=== PATIENT | female | born 1995 | race Caucasian/White ===

== ENCOUNTER 2016-10-12 13:37 | Emergency (ER) | payer MEDICAID ==
[~2016-10-12] VITALS: Ht 165.1 cm; Wt 53.9 kg
[~2016-10-12 13:37] MED LIST: FAMO-79 PO; IBUP-1222 PO; MELO-184 PO; NITR100C56 PO; ONDA4TAB10 PO; OXYC-302 PO; PREN1TAB60 PO; [UNRECOGNIZED DRUG - REMARK] PO
[2016-10-12 15:12] LABS: ASPARTATE AMINO TRANSFERASE 13 U/L (15-37); BLOOD UREA NITROGEN 13 mg/dL (7-18)
[2016-10-12 15:16] LABS: HCG UR OBC PASS
[2016-10-12 15:30] LABS: HEMOGLOBIN 13.8 g/dL (11.7-16.4)
[2016-10-12 16:34] VITALS: BP 113/66
== END 2016-10-12 16:36 | disposition home or self-care (01) ==
LOC: ED 14:26
DX: K59.00 Constipation, unspecified (principal); R10.84 Generalized abdominal pain
CPT/HCPCS: 36415; 74000; 80053; 81001; 81025; 85025

== ENCOUNTER 2017-06-21 09:52 | Emergency (ER) | payer MEDICAID ==
[~2017-06-21] VITALS: Ht 165.1 cm; Wt 60.0 kg
[~2017-06-21 09:52] MED LIST changes: -MELO-184 PO; +MELO15TA24 PO
[2017-06-21 10:02] VITALS: BP 108/70
[2017-06-21 10:58] LABS: HEMATOCRIT 44.4 % (34.6-47.8); HEMOGLOBIN 15.1 g/dL (11.7-16.4); WHITE BLOOD COUNT 8.3 x10^3/uL (3.4-10)
[2017-06-21 11:09] LABS: ASPARTATE AMINO TRANSFERASE 15 U/L (15-37); BLOOD UREA NITROGEN 8 mg/dL (7-18)
== END 2017-06-21 12:02 | disposition left against medical advice (07) ==
LOC: ED 11:56
DX: R10.12 Left upper quadrant pain (principal)
CPT/HCPCS: 36415; 80053; 84703; 85025; 99284

== ENCOUNTER 2017-07-02 07:34 | Emergency (ER) | payer MEDICAID ==
[~2017-07-02] VITALS: Ht 165.1 cm; Wt 60.6 kg
[2017-07-02 07:35] VITALS: BP 110/74
[2017-07-02] MEDS ORDERED: ONDANSETRON ODT 4 MG PO ONE (08:00)
[2017-07-02] MEDS ORDERED: PHENAZOPYRIDINE 200 MG TABLET PO ONE (08:00)
[2017-07-02] MEDS ORDERED: ONDANSETRON ODT 4 MG ONE (08:22)
[2017-07-02] MEDS ORDERED: PHENAZOPYRIDINE 200 MG TABLET ONE (08:22)
[2017-07-02 08:27] LABS: HEMATOCRIT 41.8 % (34.6-47.8); HEMOGLOBIN 14.3 g/dL (11.7-16.4); WHITE BLOOD COUNT 11.1 x10^3/uL (3.4-10)
[2017-07-02 08:36] LABS: ASPARTATE AMINO TRANSFERASE 13 U/L (15-37); BLOOD UREA NITROGEN 13 mg/dL (7-18)
== END 2017-07-02 10:16 | disposition home or self-care (01) ==
LOC: ED 10:00
DX: N83.02 Follicular cyst of left ovary (principal); N83.01 Follicular cyst of right ovary
CPT/HCPCS: 36415; 76830; 80053; 81001; 84703; 85025; 87086; 99285; Q0162

== ENCOUNTER 2017-07-23 08:52 | Emergency (ER) | payer MEDICAID ==
[~2017-07-23] VITALS: Ht 165.1 cm; Wt 60.2 kg
[2017-07-23] MEDS ORDERED: SODIUM CHLORIDE FLUSH 10ML SYR IVF ONE (09:30)
[2017-07-23 09:40] LABS: BASOPHILS # (AUTO) 0.04 x10^3/uL (0-0.1); BASOPHILS % (AUTO) 1 % (0-1); EOSINOPHILS # (AUTO) 0.03 x10^3/uL (0-0.4); EOSINOPHILS % (AUTO) 0 % (1-7); LYMPHOCYTES # (AUTO) 2.22 x10^3/uL (1-3.4); LYMPHOCYTES % (AUTO) 28 % (22-44); MD NO; MEAN CORPUSCULAR HEMOGLOBIN 30.2 pg (27.0-34.8); MEAN CORPUSCULAR HGB CONC 33.6 g/dL (32.4-35.8); MEAN CORPUSCULAR VOLUME 89.8 fL (80-100); MONOCYTES # (AUTO) 0.44 x10^3/uL (0.2-0.8); MONOCYTES % (AUTO) 6 % (2-9); NEUTROPHILS # (AUTO) 5.28 x10^3/uL (1.8-6.8); NEUTROPHILS % (AUTO) 66 % (42-75); PLATELET COUNT 270 x10^3/uL (130-400); RED BLOOD COUNT 4.68 x10^6/uL (3.82-5.3); RED CELL DISTRIBUTION WIDTH 13.5 % (9.6-15.2)
[2017-07-23 09:55] LABS: ALBUMIN 4.1 g/dL (3.4-5.0); ANION GAP 7 mmol/L (5-15); CALCIUM 8.6 mg/dL (8.5-10.1); CHLORIDE 107 mmol/L (98-107)
[2017-07-23 10:03] LABS: ALANINE AMINOTRANSFERASE 13 U/L (12-78); ALKALINE PHOSPHATASE 58 U/L (45-117); BILIRUBIN,TOTAL 0.4 mg/dL (0.2-1.0); CREATININE 0.51 mg/dL (0.55-1.02); TOTAL PROTEIN 7.5 g/dL (6.4-8.2)
[2017-07-23 10:07] LABS: MICROSCOPIC AUTO
[2017-07-23 10:10] LABS: CULTURE INDICATED? YES
[2017-07-23] MEDS ORDERED: OMNIPAQUE 350 MG/ML, 100ML BOTTLE ONE (10:50)
[2017-07-23 11:01] VITALS: BP 108/63
== END 2017-07-23 12:17 | disposition home or self-care (01) ==
LOC: ED 10:31
DX: N94.89 Other specified conditions associated with female genital organs and menstrual cycle (principal)
CPT/HCPCS: 36415; 74177; 80053; 81001; 83690; 84703; 85025; 87086; 99285; Q9967

== ENCOUNTER 2019-06-05 11:26 | Emergency (ER) | payer MEDICAID ==
[~2019-06-05] VITALS: Ht 165.1 cm; Wt 59.4 kg
[2019-06-05 12:11] LABS: BASOPHILS # (AUTO) 0.03 x10^3/uL (0-0.1); BASOPHILS % (AUTO) 1 % (0-1); EOSINOPHILS # (AUTO) 0.03 x10^3/uL (0-0.4); EOSINOPHILS % (AUTO) 0 % (1-7); LYMPHOCYTES # (AUTO) 1.38 x10^3/uL (1-3.4); LYMPHOCYTES % (AUTO) 22 % (22-44); MD NO; MEAN CORPUSCULAR HEMOGLOBIN 30.3 pg (27.0-34.8); MEAN CORPUSCULAR HGB CONC 32.9 g/dL (32.4-35.8); MEAN CORPUSCULAR VOLUME 92.1 fL (80-100); MEAN PLATELET VOLUME 7.8 fL (7.4-10.4); MONOCYTES # (AUTO) 0.37 x10^3/uL (0.2-0.8); MONOCYTES % (AUTO) 6 % (2-9); NEUTROPHILS % (AUTO) 72 % (42-75); PLATELET COUNT 284 x10^3/uL (130-400); RED BLOOD COUNT 4.21 x10^6/uL (3.82-5.3); RED CELL DISTRIBUTION WIDTH 12.7 % (9.6-15.2)
--- NOTE | 2019-06-05 12:16 | NUR ---
FIELD MARKETING LEAD: PT TO ULTRASOUND. PT AMBULATORY WITH STEADY GAIT. ALEA
[2019-06-05 12:23] LABS: ALBUMIN 3.7 g/dL (3.4-5.0); ANION GAP 6 mmol/L (5-15); CALCIUM 8.5 mg/dL (8.5-10.1); CHLORIDE 105 mmol/L (98-107)
[2019-06-05 12:41] LABS: CREATININE 0.53 mg/dL (0.55-1.02)
--- NOTE | 2019-06-05 12:43 | NUR ---
ALIGNING CHECKER: PT TO ROOM FROM US AT THIS TIME. PT AMBULATORY WITH STEADY GAIT. ALEA
--- NOTE | 2019-06-05 12:53 | NUR ---
PT AMBULATES INDEPENDENTLY TO BATHROOM FOR UA. DAUGHTER AND FRIEND AT BEDSIDE. NAD NOTED IN PT AT THIS TIME. PER PT, ABD PAIN X2 WEEKS, VOMITING. NO VOMITING NOTED IN ED. AWAITING ERMD KEVYN.
[2019-06-05] MEDS ORDERED: FAMOTIDINE 20 MG/2 ML IVPush ONE (13:30)
[2019-06-05] MEDS ORDERED: SODIUM CHLORIDE 0.9% 1,000ML IVBOLUS ONE (13:30)
[2019-06-05] MEDS ORDERED: ONDANSETRON 2MG/ML, 2ML IVPush ONE (13:30)
[2019-06-05] MEDS ORDERED: SODIUM CHLORIDE FLUSH 10ML SYR IVF ONE (13:30)
[2019-06-05] MEDS ORDERED: FAMOTIDINE 20 MG/2 ML ONE (13:33)
[2019-06-05] MEDS ORDERED: ONDANSETRON 2MG/ML, 2ML ONE (13:33)
--- NOTE | 2019-06-05 14:18 | NUR ---
PT SITTING IN BED USING CELL PHONE. NAD NOTED AT THIS TIME. PT DENIES NAUSEA OR PAIN. SIDE RAIL UP, CALL LIGHT IN REACH. IVF STILL INFUSING. FRIEND AT BEDSIDE.
--- NOTE | 2019-06-05 14:36 | NUR ---
PT GIVEN PO FLUIDS FOR CHALLENGE. NAD NOTED AT THIS TIME. STILL DENIES NAUSEA.
[2019-06-05 14:54] VITALS: BP 109/65
== END 2019-06-05 14:56 | disposition home or self-care (01) ==
LOC: ED 14:50
DX: O21.0 Mild hyperemesis gravidarum (principal); E86.9 Volume depletion, unspecified; Z3A.08 8 weeks gestation of pregnancy
CPT/HCPCS: 36415; 76801; 80048; 82040; 84702; 85025; 96361; 96374; 96375; 99284; J2405; J3490; J7030

== ENCOUNTER 2019-06-17 12:13 | Emergency (ER) | payer MEDICAID ==
[~2019-06-17] VITALS: Ht 165.1 cm; Wt 58.0 kg
[2019-06-17 12:30] VITALS: BP 125/67
[2019-06-17 13:00] LABS: BASOPHILS # (AUTO) 0.05 x10^3/uL (0-0.1); BASOPHILS % (AUTO) 1 % (0-1); EOSINOPHILS # (AUTO) 0.02 x10^3/uL (0-0.4); EOSINOPHILS % (AUTO) 0 % (1-7); LYMPHOCYTES # (AUTO) 1.51 x10^3/uL (1-3.4); LYMPHOCYTES % (AUTO) 21 % (22-44); MD NO; MEAN CORPUSCULAR HEMOGLOBIN 30.6 pg (27.0-34.8); MEAN CORPUSCULAR HGB CONC 33.6 g/dL (32.4-35.8); MEAN CORPUSCULAR VOLUME 91.2 fL (80-100); MEAN PLATELET VOLUME 7.7 fL (7.4-10.4); MONOCYTES # (AUTO) 0.32 x10^3/uL (0.2-0.8); MONOCYTES % (AUTO) 4 % (2-9); NEUTROPHILS # (AUTO) 5.41 x10^3/uL (1.8-6.8); NEUTROPHILS % (AUTO) 74 % (42-75); PLATELET COUNT 256 x10^3/uL (130-400); RED BLOOD COUNT 4.28 x10^6/uL (3.82-5.3); RED CELL DISTRIBUTION WIDTH 12.4 % (9.6-15.2)
[2019-06-17] MEDS ORDERED: ONDANSETRON 2MG/ML, 2ML IVPush ONE (13:00)
[2019-06-17] MEDS ORDERED: SODIUM CHLORIDE FLUSH 10ML SYR IVF ONE (13:00)
[2019-06-17] MEDS ORDERED: SODIUM CHLORIDE 0.9% 1,000ML IVBOLUS ONE (13:00)
[2019-06-17] MEDS ORDERED: ONDANSETRON 2MG/ML, 2ML ONE (13:05)
[2019-06-17 13:12] LABS: ALANINE AMINOTRANSFERASE 23 U/L (12-78); ALBUMIN 3.7 g/dL (3.4-5.0); ANION GAP 8 mmol/L (5-15); CALCIUM 8.7 mg/dL (8.5-10.1); CHLORIDE 106 mmol/L (98-107); CREATININE 0.56 mg/dL (0.55-1.02)
[2019-06-17 13:14] LABS: ALKALINE PHOSPHATASE 52 U/L (45-117); BILIRUBIN,TOTAL 0.5 mg/dL (0.2-1.0); TOTAL PROTEIN 7.5 g/dL (6.4-8.2)
--- NOTE | 2019-06-17 14:02 | NUR ---
Patient/Caregiver given discharge instructions and they have confirmed that they understand the instructions. Patient ambulatory with steady gait.
== END 2019-06-17 14:03 | disposition home or self-care (01) ==
LOC: ED 12:58
DX: O21.0 Mild hyperemesis gravidarum (principal); Z3A.01 Less than 8 weeks gestation of pregnancy
CPT/HCPCS: 36415; 80053; 85025; 96361; 96374; 99283; J2405; J7030

== ENCOUNTER 2019-07-17 13:44 | Emergency (ER) | payer MEDICAID ==
[~2019-07-17] VITALS: Ht 167.6 cm; Wt 56.3 kg
[2019-07-17] MEDS ORDERED: ONDANSETRON ODT 8 MG PO ONE (19:05)
[2019-07-17 19:26] LABS: BASOPHILS # (AUTO) 0.02 x10^3/uL (0-0.1); BASOPHILS % (AUTO) 0 % (0-1); EOSINOPHILS # (AUTO) 0.02 x10^3/uL (0-0.4); EOSINOPHILS % (AUTO) 0 % (1-7); LYMPHOCYTES # (AUTO) 1.62 x10^3/uL (1-3.4); LYMPHOCYTES % (AUTO) 15 % (22-44); MD NO; MEAN CORPUSCULAR HEMOGLOBIN 30.3 pg (27.0-34.8); MEAN CORPUSCULAR HGB CONC 33.7 g/dL (32.4-35.8); MEAN PLATELET VOLUME 8.4 fL (7.4-10.4); MONOCYTES # (AUTO) 0.09 x10^3/uL (0.2-0.8); MONOCYTES % (AUTO) 1 % (2-9); NEUTROPHILS # (AUTO) 8.81 x10^3/uL (1.8-6.8); NEUTROPHILS % (AUTO) 84 % (42-75); PLATELET COUNT 298 x10^3/uL (130-400); RED BLOOD COUNT 4.67 x10^6/uL (3.82-5.3); RED CELL DISTRIBUTION WIDTH 13.2 % (9.6-15.2)
--- NOTE | 2019-07-17 19:26 | NUR ---
THIS RN WALKED PT TO ROOM FROM [facility], PT AMBULATED WITH STEADY GAIT. FAMILY WITH PT FOR EMOTIONAL SUPPORT
[2019-07-17 19:27] LABS: MICROSCOPIC INDICATED
--- NOTE | 2019-07-17 19:29 | NUR ---
PT REPORTS N/V X3 DAYS WITH 16 WEEK . REPORTS INCREASE IN N/V TODAY WITH ABDOMINAL PAIN IN EPIGASTRIC AND LUQ, DENIES REBOUND TENDERNESS, DIARRHEA, CP, ABDOMINAL CRAMPING OR VAG BLEED. DENIES PREVIOUS MISCARRIAGES.
[2019-07-17] MEDS ORDERED: ONDANSETRON ODT 8 MG ONE (19:32)
[2019-07-17 19:36] LABS: CULTURE INDICATED? YES
[2019-07-17 19:37] LABS: ALANINE AMINOTRANSFERASE 17 U/L (12-78); ALBUMIN 3.8 g/dL (3.4-5.0); ANION GAP 10 mmol/L (5-15); CALCIUM 8.8 mg/dL (8.5-10.1); CHLORIDE 105 mmol/L (98-107); CREATININE 0.59 mg/dL (0.55-1.02)
[2019-07-17 19:39] LABS: ALKALINE PHOSPHATASE 51 U/L (45-117); BILIRUBIN,TOTAL 0.4 mg/dL (0.2-1.0); TOTAL PROTEIN 8.2 g/dL (6.4-8.2)
[2019-07-17] MEDS ORDERED: SODIUM CHLORIDE 0.9% 1,000ML IVBOLUS ONE (20:00)
--- NOTE | 2019-07-17 20:58 | NUR ---
PT RESTING ON GURANA PAULA WITH FAMILY AT FOR SUPPORT. IV STILL INFUSING AT THIS TIME. ALL NEEDS MET AT THIS TIME.
--- NOTE | 2019-07-17 21:17 | NUR ---
IVF COMPLETED. PT REPORTS NO NAUSEA POST MEDICATIONS. PT DENIES FURTHER NEEDS AT THIS TIME.
[2019-07-17 21:49] VITALS: BP 114/63
== END 2019-07-17 21:54 | disposition home or self-care (01) ==
LOC: ED 21:50
DX: O20.0 Threatened abortion (principal); O99.282 Endocrine, nutritional and metabolic diseases complicating pregnancy, second trimester; O21.9 Vomiting of pregnancy, unspecified; E86.0 Dehydration; Z3A.14 14 weeks gestation of pregnancy
CPT/HCPCS: 36415; 76815; 80053; 81001; 84702; 85025; 86901; 87086; 96360; 99284; J7030; Q0162